=== PATIENT | male | born 1990 ===

== ENCOUNTER 2022-03-28 03:14 | Emergency (ER) | payer OTHER ==
[~2022-03-28] VITALS: Ht 175.3 cm; Wt 87.1 kg
== END 2022-03-28 06:16 | disposition home or self-care (01) ==
LOC: ER 03:14
DX: A60.1 Herpesviral infection of perianal skin and rectum (principal); Z91.013 Allergy to seafood

== ENCOUNTER 2022-03-30 20:31 | Emergency (ER) | payer OTHER ==
[~2022-03-30] VITALS: Ht 172.7 cm; Wt 72.6 kg
[~2022-03-30 20:31] MED LIST: MONODOX100 MG PO
[2022-03-30] MEDS ORDERED: MONODOX100 MG PO (23:46)
== END 2022-03-31 00:20 | disposition home or self-care (01) ==
LOC: ER 20:31
DX: N48.89 Other specified disorders of penis (principal); B20 Human immunodeficiency virus [HIV] disease; Z91.013 Allergy to seafood